=== PATIENT | female | born 1955 | race Caucasian/White ===

== ENCOUNTER 2019-09-13 08:01 | Observation (INO) ==
--- NOTE | 2019-08-06 15:26 | PAT Medication Instructions ---
Medication Instructions Date of Service August 06, 2019 Home Medications cetirizine [Zyrtec] 10 mg PO QAM lorazepam 0.5 mg PO TID PRN metronidazole [Metrogel] 1 applic TOPICAL DAILY PRN montelukast 10 mg PO PM multivitamin 1 tab PO QAM pantoprazole 40 mg PO QAM rosuvastatin 5 mg PO QPM sertraline 100 mg PO QAM topiramate 50 mg PO BID trazodone 75 mg PO HS STOP taking 24 hours before surgery metronidazole [Metrogel] 1 applic TOPICAL DAILY PRN DO NOT take the morning of surgery cetirizine [Zyrtec] 10 mg PO QAM multivitamin 1 tab PO QAM Take morning of surgery With a small sip of water, OTHERWISE NOTHING TO EAT OR DRINK AFTER MIDNIGHT: lorazepam 0.5 mg PO TID PRN (if needed) pantoprazole 40 mg PO QAM sertraline 100 mg PO QAM topiramate 50 mg PO BID Take evening before surgery lorazepam 0.5 mg PO TID PRN (if needed) montelukast 10 mg PO PM rosuvastatin 5 mg PO QPM topiramate 50 mg PO BID trazodone 75 mg PO HS Other Notes If you have any questions please call us at [phone] or [phone] or [phone] or [phone]
--- NOTE | 2019-08-07 10:40 | Anesthesiology Consultation ---
Date of Service August 07, 2019 Assessment & Plan (1) Encounter for pre-operative examination: Chart Review Chart Review: Acceptable Risk for Surgery and Patient seen in Pre Admission Testing Teaching & Discussion Instructed NPO after midnight before surgery, except medications with 15 cc of water. Medication instructions provided according to the PAT guidelines. History Surgery Operation Date: 09/13/19 09:20 Proposed Procedures p Right Total Hip Arthroplasty - Rg Woods, Height/Weight Height: 5 ft 6 in Weight: 110.9 kg Allergies Allergy/AdvReac Type Severity Reaction Status Date / Time chlorhexidine Allergy Intermediate SKIN Verified 08/07/19 09:15 BURNING nabumetone [From Relafen] Allergy Intermediate Hives Verified 08/07/19 09:15 adhesive tape Allergy Mild SKIN Verified 08/07/19 09:15 IRRITATION Medications Home Medications Medication Instructions Recorded Confirmed Last Taken cetirizine [Zyrtec] 10 mg PO QAM 07/30/19 07/30/19 Unknown lorazepam 0.5 mg PO TID PRN 07/30/19 07/30/19 Unknown metronidazole [Metrogel] 1 applic TOPICAL DAILY PRN 07/30/19 07/30/19 Unknown montelukast 10 mg PO PM 07/30/19 07/30/19 Unknown multivitamin 1 tab PO QAM 07/30/19 07/30/19 Unknown pantoprazole 40 mg PO QAM 07/30/19 07/30/19 Unknown rosuvastatin 5 mg PO QPM 07/30/19 07/30/19 Unknown topiramate 50 mg PO BID 07/30/19 07/30/19 Unknown trazodone 75 mg PO HS 07/30/19 07/30/19 Unknown sertraline 100 mg tablet 150 mg PO QAM tab 08/07/19 08/07/19 Unknown Past Medical History Medical History Anxiety and depression Ascending aortic aneurysm Previously monitored by PCP. No recent imaging per patient because consistently unchanged for many years. Bronchial asthma TRIGGERED BY ENVIRONMENTAL ALLERGIES (NO ACTIVE INHALER) History of Mohs micrographic surgery for skin cancer MELANOMA ON NOSE Hyperlipidemia Melanoma Obesity Osteoarthritis Pulmonary embolism "MANY YEARS AGO", ? ETIOLOGY (TX WITH ANTICOAG FOR 6 MONTHS) Exercise / Class Metabolic Activity II 4-5 Yardwork/Stairs/Walk up hill (Denies CP or SOB with 1 FOS, moving slowly 2/2 hip pain) Past Family History Family History Other No significant family history Past Surgical History Surgical History History of appendectomy History of arthroscopy RT/LEFT THUMB History of bilateral tubal ligation History of cholecystectomy History of colonoscopy History of esophagogastroduodenoscopy (EGD) History of total knee replacement RT/LEFT Nausea and vomiting after administration of anesthetic agent Past Anesthesia History No Hx of Anesthesia Complications (other than PONV) and No Family Hx of Anesthesia Complications History of PONV History of PONV (h/o severe; not with TKAs) and Hx of Motion Sickness Social History Smoking Status: Never smoker Do You Dip or Chew Tobacco: No Hx Alcohol Use: Yes Alcohol type: beer, wine and hard liquor alcohol intake frequency: holidays/special occasions only Hx Substance Use: No substance use type: does not use Review of Systems Pt denies any recent chest pain, shortness of breath, palpitations, cough, fever or URI. Physical Exam Vital Signs BP: 107/64 P: 62bpm SPO2: 96% RA T: 98.1 F R: 16 ENMT Mouth: + dental restorations (3 crowns on molars) and + chipped teeth (few chipped); no loose teeth Thyromental Distance: > or= 3.5 Finger Breadths (4) Mallampati Class: I Neck + thick neck; neck extension not limited Respiratory normal respiratory effort Auscultation: lungs clear to auscultation bilaterally Cardiovascular Rate/Rhythm: regular rate and regular rhythm Heart Sounds: no murmur Extremities: no edema Testing Laboratory Results 08/07/19 10:31 08/07/19 10:31 PT 9.8 Seconds (9.0-12.0) 08/07/19 10:31 INR 1.0 (0.9-1.1) 08/07/19 10:31 APTT 25.8 Seconds (21.0-31.0) 08/07/19 10:31 Blood Type O Positive 08/07/19 10:31 Antibody Screen NEGATIVE 08/07/19 10:31 Electrocardiogram Date: 08/07/19 Findings: + NSR @ (60) Chest X-Ray Date: 08/07/19 Findings: + NAD
[2019-08-07 11:06] LABS: Basophils # (auto) 0.02 K/uL (0-0.2); Basophils % (auto) 0.4 %; Hematocrit (blood only) 43.7 % (37-47); Hemoglobin 14.6 g/dL (12.0-16.0); Immature Granulocytes # (auto) 0.02 K/uL (0.00-0.02); Immature Granulocytes % (auto) 0.4 %; Lymphocytes # (auto) 1.42 K/uL (1.2-3.4); Lymphocytes % (auto) 27.9 %; Mean Corpuscular Hemoglobin 28.8 pg (25-34); Mean Corpuscular Hgb Conc 33.4 g/dL (32-36); Mean Corpuscular Volume 86.2 fL (80-100); Mean Platelet Volume 9.5 fL (7.4-10.4); Monocytes # (auto) 0.34 K/uL (0.11-0.59); Monocytes % (auto) 6.7 %; Neutrophils # (auto) 3.19 K/uL (1.4-6.5); Neutrophils % (auto) 62.6 %; Platelet Count 168 K/uL (130-400); RDW Coefficient of Variation 13.6 % (11.5-14.5); RDW Standard Deviation 42.9 fL (36.4-46.3); Red Blood Count 5.07 M/uL (4.2-5.4); White Blood Count 5.09 K/uL (4.8-10.8)
[2019-08-07 11:23] LABS: Partial Thromboplastin Time 25.8 Seconds (21.0-31.0); Prothrombin Time 9.8 Seconds (9.0-12.0)
--- NOTE | 2019-08-07 11:43 | XRay Report ---
XR chest Pre-admission PA/Lat CLINICAL HISTORY: pat preoperative COMPARISON STUDY: No previous studies for comparison. FINDINGS: The bones soft tissues and hemidiaphragms are normal. The cardiomediastinal silhouette is n ormal. The lungs are clear. The pulmonary vasculature is normal. IMPRESSION: Negative chest. The above report was generated using voice recognition software. It may contain grammatical, syntax or spelling errors. Electronically signed by: Chris Duque M.D. 08/07/2019 11:42 AM
[2019-08-07 13:24] LABS: BUN Creatinine Ratio 16.8 (10-20); Calcium 9.4 mg/dl (8.5-10.1); Creatinine Clr Calc Pharmacy 84.4 ml/min; Est GFR (African American) 83.9; Est GFR (Non-African American) 72.4; Potassium 3.8 mmol/L (3.5-5.1)
--- NOTE | 2019-09-12 16:15 | History & Physical Report ---
Date of Service September 12, 2019 Assessment & Plan (1) Osteoarthritis of right hip: We will proceed with a right total hip arthroplasty. Postoperatively she will be placed on aspirin for DVT prophylaxis and kept overnight in the hospital for postoperative medical management. She plans to use energy physical therapy upon discharge. Present on Admission?: Yes History of Present Illness Chief Complaint: Primary osteoarthritis of the right hip Primary Care Provider: Teresa John is a pleasant 64-year-old female who has been complaining of chronic increasing right hip and groin pain. X-rays and clinical examination have been diagnostic for primary osteoarthritis of the right hip. After failing conservative treatment, she has elected to proceed with a right anterior total hip arthroplasty. Allergies Allergy/AdvReac Type Severity Reaction Status Date / Time chlorhexidine Allergy Intermediate SKIN Verified 08/07/19 09:15 BURNING nabumetone [From Relafen] Allergy Intermediate Hives Verified 08/07/19 09:15 adhesive tape Allergy Mild SKIN Verified 08/07/19 09:15 IRRITATION Home Medications Home Medications Medication Instructions Recorded Confirmed Type cetirizine [Zyrtec] 10 mg PO QAM 07/30/19 07/30/19 History lorazepam 0.5 mg PO TID PRN 07/30/19 07/30/19 History metronidazole [Metrogel] 1 applic TOPICAL DAILY PRN 07/30/19 07/30/19 History montelukast 10 mg PO PM 07/30/19 07/30/19 History multivitamin 1 tab PO QAM 07/30/19 07/30/19 History pantoprazole 40 mg PO QAM 07/30/19 07/30/19 History rosuvastatin 5 mg PO QPM 07/30/19 07/30/19 History topiramate 50 mg PO BID 07/30/19 07/30/19 History trazodone 75 mg PO HS 07/30/19 07/30/19 History sertraline 100 mg tablet 150 mg PO QAM tab 08/07/19 08/07/19 History Wheeled Walker #1 ea 08/09/19 Rx Past Med/Surg History Medical History Anxiety and depression Ascending aortic aneurysm Previously monitored by PCP. No recent imaging per patient because consistently unchanged for many years. Bronchial asthma TRIGGERED BY ENVIRONMENTAL ALLERGIES (NO ACTIVE INHALER) History of Mohs micrographic surgery for skin cancer MELANOMA ON NOSE Hyperlipidemia Melanoma Obesity Osteoarthritis Pulmonary embolism "MANY YEARS AGO", ? 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 Beliefs That Will Affect Care: None Current Living Situation: Spouse Feels Safe at Home: Yes Smoking Status: Never smoker Second Hand Exposure: Yes ( A CHILD) ; Hx Alcohol Use: Yes Alcohol type: beer, wine and hard liquor Hx Substance Use: No Review of Systems All systems reviewed & are unremarkable except as noted in HPI & below Physical Exam Constitutional: WD/WN, vitals as above Eyes: PERRL, conjunctivae normal, anicteric sclerae ENMT: external ear and nose normal, oropharynx normal Neck: trachea midline, no thyromegaly Respiratory: normal respiratory effort Cardiovascular: RRR, no murmur, no edema Gastrointestinal (Abdomen): normal bowel sounds, soft, nontender, no hepatosplenomegaly Musculoskeletal: Physical examination of the right hip reveals decreased range of motion with flexion, internal and external rotation. There is significant groin pain with forced internal rotation of the hip his leg lengths are essentially equal. Psychiatric: A+Ox3, euthymic affect Results & Data Diagnostic Findings Radiographs of the right hip and pelvis demonstrate advanced osteoarthritis with joint space narrowing osteophyte formation and [id number] articulation.
[~2019-09-13 08:01] MED LIST: ACETAMINOPHEN 500 MG TAB PO SCH; BUPIVACAINE 0.5 % 5 MG/1 ML PF 10ML VIAL ONE; CEFAZOLIN 2000MG 2,000 MG/15 ML SYR IV SCH; FAMOTIDINE 20 MG TAB PO SCH; GABAPENTIN 600 MG DOSE PO SCH; LR 500ML BOLUS, THEN 15ML/HR IV SCH; LR 60ML/HR IV SCH; ROPIVACAINE 0.5% HCL/PF 150 MG, BUPIVACAINE 0.5% MPF 30 ML, EPINEPHrine 30MG/30ML (OR U... INFIL SCH; ROPIVACAINE 0.5% HCL/PF 150 MG, BUPIVACAINE 0.5% MPF 30 ML, EPINEPHrine 30MG/30ML (OR U... INSTIL SCH; TRANEXAMIC ACID 1,000 MG **IV Intra-op IV SCH; TRANEXAMIC ACID 1,000 MG **IV Pre-op IV SCH
[2019-09-13] MEDS ORDERED: ePHEDrine sulfate 50 MG/ML AMP IV PRN (08:28)
[2019-09-13] MEDS ORDERED: fentaNYL citrate 100 MCG/2 ML VIAL IV PRN (08:28)
[2019-09-13] MEDS ORDERED: LABETALOL HCL IV 5 MG/ML 20ML IV PRN (08:28)
[2019-09-13] MEDS ORDERED: HYDROmorphone INJ 1 MG/ML SYRINGE IV PRN (08:28)
[2019-09-13] MEDS ORDERED: PHENYLEPHRINE 100MCG/ML 5ML SYR IV PRN (08:28)
[2019-09-13] MEDS ORDERED: MEPERIDINE HCL 25 MG/ML CARP IV PRN (08:28)
[2019-09-13] MEDS ORDERED: ATROPINE SULFATE 0.1 MG/ML 10ML SYR IV PRN (08:28)
[2019-09-13] MEDS ORDERED: ONDANSETRON INJ 2 MG/ML 2 ML VIAL IV PRN ×2 (08:28→13:14)
--- NOTE | 2019-09-13 08:36 | History & Physical Bridge Note ---
Date of Service September 13, 2019 History & Physical Bridge Note I have examined the patient, reviewed the History & Physical and in the interval since the performance of the History & Physical I have noted the following changes of clinical significance: no changes noted
[2019-09-13] MEDS ORDERED: MIDAZOLAM HCL 1 MG/ML 2ML VIAL ONE ×2 (08:41→08:42)
[2019-09-13] MEDS ORDERED: fentaNYL citrate 100 MCG/2 ML VIAL ONE (08:45)
[2019-09-13] MEDS ORDERED: TRANEXAMIC ACID / 0.7% NACL 1000MG/100ML BAG IV ONE (09:42)
[2019-09-13] MEDS ORDERED: ePHEDrine sulfate 50 MG/ML AMP ONE (11:30)
[2019-09-13] MEDS ORDERED: PROPOFOL IV EMULSION 10 MG/ML 20 ML VIAL IV ONE ×2 (11:30)
[2019-09-13] MEDS ORDERED: DEXAMETHASONE SOD INJ 4 MG/ML VIAL ONE (11:31)
[2019-09-13] MEDS ORDERED: ONDANSETRON INJ 2 MG/ML 2 ML VIAL ONE (11:31)
--- NOTE | 2019-09-13 12:05 | Operative Report ---
PG Post Operative Report Pre & Post Diagnosis Operation Date: 09/13/19 10:10 Pre-Op Diagnosis: Right Hip Degenerative Joint Disease Post-Op Diagnosis: Right Hip Degenerative Joint Disease I identified the patient and participated in the time-out.: Yes Procedure Operation Date: 09/13/19 10:10 Actual Procedures p Right Anterior Total Hip Arthroplasty, Uncemented(Right) - Rg Woods DO Surgeon Rg Woods, Department Store Manager Rg Reardon PAC Estimated Blood Loss 400 Findings Consistent with Post-Op Diagnosis Specimens Right femoral head Complications none Disposition Disposition: Recovery Room Indications Yary is a pleasant 64-year-old female who presented my office with chronic right hip and groin pain. X-rays and clinical examination were diagnostic for advanced osteoarthritis of the right hip. After failing conservative treatment, she elected proceed with a right anterior total hip arthroplasty. Description of Procedure Implants used Biomet Taperloc total hip arthroplasty system with a size 12 high offset Taperloc stem, a 50 mm G7 cup with a 25mm screw, an E1 polyethylene liner, a 36 mm ceramic head with a -3 neck. Patient arrived at the hospital for the above procedure. They were seen in the preoperative holding area and the operative extremity was identified and signed. They were given a spinal anesthetic. They were given a preoperative antibiotic and TXA. They were taken back To the operating room and laid on the table in the supine position. The leg was brought out through a Puristst leg positioner. The hip was then prepped and draped in sterile fashion. A timeout was done and the patient and the operative extremity was properly identified. An anterior approach was used. Dissection was taken down through the fascia and the tensor muscle belly was retracted laterally and the rectus was retracted medially. The circumflex vessels were identified and ligated. The capsule was then incised and tagged for later repair. The femoral neck was then cut and the femoral head was removed. The acetabulum was exposed. Time was spent doing a complete circumferential labral release. Sequential reaming of the acetabulum up to a size 49 reamer was done. Final reamings were done under fluoroscopy to ensure appropriate version. A Biomet 50 mm G7 cup was then impacted into place. A single 25 mm screw was placed. The E1 polyethylene liner was then snapped into place. Surrounding soft tissues were then injected with 100 cc of an orthopedic pain control cocktail. The proximal femur was then exposed. The initial broaching of the femur was at a difficult angle. An x-ray was obtained and the tip of a small broach was coming out of the lateral cortex. The broach was then redirected. Multiple x- rays were taken and I did not see any propagating fractures. Sequential broaching up to a size 12 broach was then done. Off that broach a size 36 head with a -3 neck was trialed. The hip was reduced and fluoroscopic images showed anatomic alignment of the implants in acceptable length. The broach was removed. The final size 12 high offset Taperloc stem was then impacted into place. A ceramic 36 mm head with a -3 neck was then impacted into place in the hip was reduced. Final fluoroscopic images showed anatomic reduction of the hip. The capsule was then closed with #1 Vicryl suture. A dilute betadyne lavage was then done for 3 minutes. The joint was then irrigated with normal saline solution. The fascia was closed with #1 PDS suture. Skin was closed with 2-0 Vicryl, paul, and a Bibi VAC dressing. The patient was then transfer red to a hospital bed and taken to the post anesthesia care unit in stable condition. They tolerated the procedure well. I attest to the content of the Intraoperative Record and any orders documented therein. Any exceptions are noted below.
--- NOTE | 2019-09-13 12:21 | Fluoroscopy Report ---
FL hip RT 1V CLINICAL HISTORY: RT ANTERIOR HIP COMPARISON STUDY: None. FLUOROSCOPY TIME: 40 seconds. FINDINGS: 2 fluoroscopic spot images demonstrate a right total hip arthroplasty. The hardware appears intact. No fracture or dislocation. IMPRESSION: Fluoroscopy provided for right total hip arthroplasty. ACT 112: Negative or not required by law. Electronically signed by: Freddy Smith M.D. 09/13/2019 12:19 PM
--- NOTE | 2019-09-13 12:57 | Anesthesiology Progress Note ---
Date of Service September 13, 2019 Anesthesia Post Procedure Vital Signs Vital Signs: Temp Pulse Pulse Resp BP Pulse Ox 09/13/19 12:35 36.5 C 67 11 L 104/65 100 09/13/19 08:32 36.7 C 66 18 119/59 L 96 Pain Intensity Right Hip: Pain Intensity: 1 Transfer of Care Handoff Completed per policy Notes Mental Status: alert / awake / arousable Patient Amnestic to Procedure: Yes Nausea / Vomiting: adequately controlled Pain: adequately controlled Airway Patency, RR, SpO2: stable & adequate BP & HR: stable & adequate Hydration State: stable & adequate Neuraxial Anesthesia: was administered and sensory block is resolving Anesthetic Complications: no major complications apparent and Pt Satisfied with anesthetic care
--- NOTE | 2019-09-13 12:58 | XRay Report ---
AP PELVIS, CROSSTABLE LATERAL RIGHT HIP History: Right total hip arthroplasty. Degenerative arthritis. Postop. FINDINGS: The patient is status post a right total hip arthroplasty. The hardware is intact. No fract ure or dislocation. IMPRESSION: Right total hip arthroplasty. No evidence for hardware complication ACT 112: Negative or not required by law. Electronically signed by: Freddy Smith M.D. 09/13/2019 12:57 PM
[2019-09-13] MEDS ORDERED: NALOXONE HCL 0.4 MG/1 ML VIAL/CARP IV PRN (13:14)
[2019-09-13] MEDS ORDERED: MAGNESIUM HYDROXIDE SUSP 30 ML UDC PO PRN (13:14)
[2019-09-13] MEDS ORDERED: METOCLOPRAMIDE HCL INJ 5 MG/ML 2 ML VIAL IV PRN (13:14)
[2019-09-13] MEDS ORDERED: bisacodyL 10 MG SUPP PR PRN (13:14)
[2019-09-13] MEDS ORDERED: HYDROmorphone INJ 0.5 MG/0.5 ML SYR IV PRN (13:14)
[2019-09-13] MEDS: SODIUM CHLORIDE 0.9% 1000ML 1,000 ML IV SCH ×2 (13:26→23:31)
[2019-09-13] MEDS: KETOROLAC 30 MG/ML VIAL IV SCH ×2 (14:06→19:36)
[2019-09-13] MEDS: CEFAZOLIN 2000MG 2,000 MG/15 ML SYR IV SCH ×2 (16:28→23:19)
[2019-09-13] MEDS: ACETAMINOPHEN 500 MG TAB PO SCH (16:29)
[2019-09-13] MEDS ORDERED: SENNA 8.6 MG TAB PO SCH (21:00)
[2019-09-13] MEDS ORDERED: MONTELUKAST SODIUM 10 MG TABLET PO SCH (21:00)
[2019-09-13] MEDS ORDERED: ROSUVASTATIN CALCIUM 5 MG TAB PO SCH (21:00)
[2019-09-13] MEDS: ASPIRIN 81 MG ECTAB PO SCH (21:15)
[2019-09-13] MEDS: TOPIRAMATE 50 MG TAB PO SCH (21:16)
[2019-09-13] MEDS: DOCUSATE SODIUM 100 MG CAP PO SCH (21:17)
[2019-09-13] MEDS: OXYCODONE HCL IR 5 MG TAB (IMMEDIATE RELEASE) PO PRN (22:37)
[2019-09-14] MEDS: KETOROLAC 30 MG/ML VIAL IV SCH ×2 (02:13→08:33)
[2019-09-14] MEDS: OXYCODONE HCL IR 5 MG TAB (IMMEDIATE RELEASE) PO PRN ×3 (02:32→12:29)
[2019-09-14] MEDS: ACETAMINOPHEN 500 MG TAB PO SCH (05:41)
[2019-09-14 06:13] LABS: Basophils # (auto) 0.01 K/uL (0-0.2); Basophils % (auto) 0.1 %; Eosinophils # (auto) 0.01 K/uL (0-0.5); Eosinophils % (auto) 0.1 %; Hematocrit (blood only) 36.1 % (37-47); Hemoglobin 11.8 g/dL (12.0-16.0); Immature Granulocytes # (auto) 0.03 K/uL (0.00-0.02); Immature Granulocytes % (auto) 0.3 %; Lymphocytes # (auto) 0.81 K/uL (1.2-3.4); Lymphocytes % (auto) 9.4 %; Mean Corpuscular Hemoglobin 28.1 pg (25-34); Mean Corpuscular Hgb Conc 32.7 g/dL (32-36); Mean Platelet Volume 10.1 fL (7.4-10.4); Monocytes # (auto) 0.79 K/uL (0.11-0.59); Monocytes % (auto) 9.1 %; Platelet Count 151 K/uL (130-400); RDW Coefficient of Variation 13.8 % (11.5-14.5); RDW Standard Deviation 43.4 fL (36.4-46.3); White Blood Count 8.65 K/uL (4.8-10.8)
[2019-09-14 06:42] LABS: BUN Creatinine Ratio 18.9 (10-20); Calcium 8.7 mg/dl (8.5-10.1); Creatinine Clr Calc Pharmacy 98.3 ml/min; Est GFR (African American) 99.2; Est GFR (Non-African American) 85.6; Potassium 4.5 mmol/L (3.5-5.1)
[2019-09-14] MEDS ORDERED: dexAMETHasone 4 MG TAB PO SCH (08:00)
[2019-09-14] MEDS: DOCUSATE SODIUM 100 MG CAP PO SCH (08:30)
[2019-09-14] MEDS: TOPIRAMATE 50 MG TAB PO SCH (08:31)
[2019-09-14] MEDS: ASPIRIN 81 MG ECTAB PO SCH (08:31)
--- NOTE | 2019-09-14 08:51 | Orthopedic Progress Note ---
Date of Service September 14, 2019 Assessment & Plan (1) History of right hip replacement: Overall she is doing very well. She is not having too much pain in the right hip. She is already been ambulating. She will be seen by physical therapy again this morning for ambulation and range of motion exercises. She is on aspirin for DVT prophylaxis. She can be discharged to home later today if she is feeling okay. Otherwise, she can stay until tomorrow. If she leaves today I will see her in the office in 2 weeks. Present on Admission?: Yes Subjective Mildred was seen and examined at bedside this morning. Overall she is doing fairly well. She is not in too much pain in the right hip. She has already been up and ambulating to the bathroom. She has no complaints. Physical Exam Musculoskeletal: On physical examination of the right hip, the Bibi VAC dressing is to suction. Her leg lengths are equal. She has active dorsiflexion plantarflexion of her right ankle. She still has some lateral numbness. Results & Data Vital Signs (Past 12 Hours) Vital Signs Temp Pulse Resp BP BP Pulse Ox 09/14/19 06:33 36.4 C L 64 14 101/66 97 09/14/19 03:27 36.4 C L 69 16 103/67 97 09/13/19 23:13 36.5 C 67 18 109/73 97 Laboratory Results H & H 08/07/19 09/14/19 Range/Units 10:31 04:53 Hgb 14.6 11.8 L (12.0-16.0) g/dL Hct 43.7 36.1 L (37-47) % Coagulation 08/07/19 Range/Units 10:31 INR 1.0 (0.9-1.1) Diagnostic Findings Postoperative x-rays of the right hip show the prosthesis to be in anatomic alignment without any evidence of fracture, dislocation, or loosening. PG Care Time/CCT Total # of Minutes Spent Total Time Spent with Patient: Total time spent is greater than 50% in coordination of care (as documented) at patient's floor/unit and/or counseling patient: Coding Level of Care Code None Diagnoses History of right hip replacement Z96.641
[2019-09-14] MEDS ORDERED: CETIRIZINE HCL 10 MG TABLET PO SCH (09:00)
[2019-09-14] MEDS ORDERED: SERTRALINE HCL 50 MG TABLET PO SCH (09:00)
[2019-09-14] MEDS ORDERED: PANTOprazole 40 MG TAB PO SCH (09:00)
[2019-09-14] MEDS ORDERED: MULTIVITAMIN TAB PO SCH (09:00)
--- NOTE | 2019-09-14 13:34 | Anesthesiology Progress Note ---
Date of Service September 14, 2019 Anesthesia Post Procedure Vital Signs Vital Signs: Temp Pulse Resp BP BP Pulse Ox 09/14/19 11:46 36.8 C 68 18 114/75 98 09/14/19 06:33 36.4 C L 64 14 101/66 97 09/14/19 03:27 36.4 C L 69 16 103/67 97 09/13/19 23:13 36.5 C 67 18 109/73 97 09/13/19 19:02 36.3 C L 77 16 116/74 93 09/13/19 15:49 36.4 C L 68 16 111/76 96 09/13/19 14:10 72 16 115/77 98 Pain Intensity Right Hip: Pain Intensity: 4 Notes Mental Status: alert / awake / arousable Nausea / Vomiting: adequately controlled Pain: adequately controlled Airway Patency, RR, SpO2: stable & adequate BP & HR: stable & adequate Hydration State: stable & adequate Neuraxial Anesthesia: was administered and sensory block resolved Anesthetic Complications: no major complications apparent and Pt Satisfied with anesthetic care
--- NOTE | 2019-09-15 08:21 | Discharge Summary ---
Date of Service September 15, 2019 Admission HPI Per Admitting Provider Alvaro is a pleasant 64-year-old female who has been complaining of chronic increasing right hip and groin pain. X-rays and clinical examination have been diagnostic for primary osteoarthritis of the right hip. After failing conservative treatment, she has elected to proceed with a right anterior total hip arthroplasty. Principal Diagnosis Right total hip arthroplasty Discharge Data Allergies Allergy/AdvReac Type Severity Reaction Status Date / Time chlorhexidine Allergy Intermediate SKIN Verified 09/13/19 08:22 BURNING nabumetone [From Relafen] Allergy Intermediate Hives Verified 09/13/19 08:22 adhesive tape Allergy Mild SKIN Verified 09/13/19 08:22 IRRITATION Consultations 09/14/19 08:00 Consult Case Management - Discharge Planning Routine Procedures Performed Operation Date: 09/13/19 10:10 Actual Procedures p Right Anterior Total Hip Arthroplasty, Uncemented(Right) - Rg Woods DO Ordered Studies 09/13/19 10:10 FL fluoroscopy <1hr Routine FL hip RT 1V Routine Hospital Course (1) History of right hip replacement: On September 13, 2019 Yary arrived at [facility] and underwent a right total hip arthroplasty without complication. She had a spinal anesthetic. Postoperatively she was started on aspirin for DVT prophylaxis and discharged to general orthopedic floors. Her hospital course was uneventful. On postop day #1 her H&H was stable and her pain was well controlled. She was able to participate well with physical therapy doing ambulation and range of motion exercises. She was then discharged to [facility] with [facility]. She will follow-up with orthopedics in 2 weeks. Total Time Total Time Spent Total Time Spent (In Minutes): 20 Discharge Plan Discharge Items Patient Disposition: Home - Self-Care Reason For Visit: Right Hip Degenerative Joint Disease Discharge Diagnosis: Right total hip arthroplasty Activity: As commented below Non-emergency contact: Surgeon Call non-emergency contact if: your wound has increased redness and your wound has increased drainage Follow-up/Referrals: Teresa Stafford [Primary Care Provider] - Diet: Regular Addtl Attending Provider Instructions: Activity and Therapy Recommendations: * If you are using [facility] then therapy will be provided at your home until they feel you have accomplished all of your goals. * If you are using [facility] then Physical Therapy will be provided until they feel you are ready to start Outpatient Physical Therapy. * If you are not using home therapy then Outpatient Physical Therapy should start about 3-5 days from your day of surgery. Therapy will last about 6-10 weeks * You were shown a series of exercises in the hospital. Do these exercises three times each day including the exercises you were shown in physical therapy. * Get up and walk several times each day.~ For the first four weeks, try not to stand or walk for more than one hour at a time. If you do stand or walk for more than one hour, you will not hurt anything, but your leg will likely swell.~~ * As you feel comfortable, you may change from the walker or crutches to a cane and~then to independent walking. Medications: * Narcotic You will likely be sent home from the hospital with a prescription for the narcotic pain medication that worked best throughout your stay. * Aspirin Most patients will be required to take Aspirin 81mg twice a day for 6 weeks after surgery. This is obtained [id number] and a prescription is not necessary. * Other medications may be prescribed for specific circumstances. If you have any questions, please call the office at . * Resume previous home medications unless otherwise instructed TEDs/Elastic Stockings: The white elastic stockings help limit swelling and prevent blood clots from forming in your legs. The more you wear them, the more they work. Wear them for six weeks. Dressing Care: You will likely have a purple VAC dressing after surgery. This dressing will keep the incision dry and promote early healing. After about 7 days the batteries will wear out and the VAC will lose suction. Simply remove the dressing at that time and throw everything away, including the small suction machine. Then, you may leave the paul open to air or cover them with a dry dressing so they do not rub on your pants. The paul will be removed at your 2 week follow-up appointment. Showering: You may shower immediately with the purple VAC dressing. Let the shower spray hit your opposite side and slowly pat the plastic dry. Do not soak the dressing. After the dressing is removed you may shower normally with the paul exposed. Let soapy water run over the paul and pat them dry. Things To Watch For: * Drainage from the incision site that occurs more than one week after your surgery. * Increased redness at the incision site. * Fever above 102 degrees Fahrenheit. * Unusual chest pain or shortness of breath. * Call [facility] at with any of the above problems Follow-Up Visit: Follow-up with Dr. Woods 2-3 weeks after your day of surgery. An appointment was probably scheduled when you signed-up for surgery in the office. If you have any questions call Office Instructions: More detailed instructions as well as Frequently Asked Questions were provided in a folder by our office when you signed-up for surgery. Please review these instructions when you get home. If you have any further questions or concerns, please feel free to call the office at [phone] A message was left for [facility] ([phone]). Referral was also faxed asking someone to reach out to you on Monday to set up therapy time. Pending Studies at Discharge: No Stand-Alone Forms: [facility], Opioid Pain Management, Smoking Cessation Medications and DC Order Prescriptions: New oxycodone 5 mg Tablet 5 mg PO Q4H PRN (Reason: pain) Qty: 30 RF: 0 aspirin [Ecotrin Low Strength] 81 mg Tablet,Delayed Release (Dr/Ec) 81 mg PO BID 42 Days Qty: 0 RF: 0 Continued (DME) Wheeled Walker Misc See Rx Instructions .ROUTE .MEDSUPPLY Qty: 1 RF: 0 multivitamin Tablet 1 tab PO QAM RF: 0 trazodone 50 mg Tablet 75 mg PO HS RF: 0 lorazepam 0.5 mg Tablet 0.5 mg PO TID PRN (Reason: Anxiety) RF: 0 pantoprazole 40 mg Tablet,Delayed Release (Dr/Ec) 40 mg PO QAM RF: 0 montelukast 10 mg Tablet 10 mg PO PM RF: 0 rosuvastatin 5 mg Tablet 5 mg PO QPM RF: 0 topiramate 50 mg Tablet 50 mg PO BID RF: 0 metronidazole [Metrogel] 1 % Gel 1 applic TOPICAL DAILY PRN (Reason: ROSACEA) RF: 0 Zyrtec 10 mg Capsule 10 mg PO QAM RF: 0 sertraline 100 mg tablet 150 mg PO QAM RF: 0 Discharge Orders: Discharge Order (Routine); Ordered 09/14/19 Ordered By: Rg Newman/Other Patient Handouts: Surgery Prevent DVT After Admission Data Admit Date/Time: 09/13/19 12:36 Attending Provider: Rg Woods Admit Provider: Rg Woods Primary Care Provider: Teresa Stafford Other Interventions: Discharge Summary Assessment (RN) Last Done: 09/14/19 12:12 DC Date/Time DO NOT enter until pt leaves facility: 09/14/19 13:53 Coding Level of Care Code D/C Day Management <30 mins Diagnoses History of right hip replacement Z96.641
== END 2019-09-14 13:53 | disposition home or self-care (01) ==
LOC: ASU 08:01 → INTOOBSV 12:36 → 3E 12:36